=== PATIENT | female | born 1970 | race Caucasian/White ===

== ENCOUNTER 2018-06-15 14:56 | Emergency (ER) | payer MEDICAID ==
[2018-06-15] MEDS: METHOCARBAMOL 750 MG TAB PO (16:40)
[2018-06-15] MEDS: DEXAMETHASONE 10 MG/ML 1 ML INJ IM (16:41)
[2018-06-15] MEDS: KETOROLAC 30 MG INJ IM (16:41)
== END 2018-06-15 17:58 | disposition home or self-care (01) ==
LOC: FTE 14:56
DX: M54.41 Lumbago with sciatica, right side (principal)
CPT/HCPCS: 72100; 81025; 96372; 99284-25